=== PATIENT | female | born 1970 | race Hispanic/Latino ===

== ENCOUNTER 2019-11-29 19:21 | Emergency (ER) | payer SELFPAY ==
--- NOTE | 2019-11-29 21:09 | Event Note ---
ED Screening Note Date of service: 11/29/19 Time: 21:07 ED Screening Note: 48 y o female presents with lower back pain s/p fall in the hotel tub tonight. pain with walking recent l4-l5 surgery about a year ago This initial assessment/diagnostic orders/clinical plan/treatment(s) is/are subject to change based on patients health status, clinical progression and re- assessment by fellow clinical providers in the ED. Further treatment and workup at subsequent clinical providers discretion. Patient/guardian urged not to elope from the ED as their condition may be serious if not clinically assessed and managed. Initial orders include: CT lumbar
--- NOTE | 2019-11-30 00:12 | Cat Scan Report ---
CT lumbar spine wo con INDICATION: pain s/p fall. TECHNIQUE: All CT scans at this location are performed using CT dose reduction for ALARA by means of automated e xposure control. COMPARISON: None available. FINDINGS: Advanced degenerative disc change at L4-5. No fracture, subluxation or other acute abnormality. IMPRESSION: 1. No acute fracture. Signer Name: Ousmane Hitchcock MD Signed: 11/30/2019 12:08 AM Workstation Name: [id number]
[2019-11-30] MEDS ORDERED: HYDROmorphone 1 MG/1 ML INJ IM ONE (00:30)
[2019-11-30] MEDS ORDERED: ONDANSETRON 4 MG/2 ML INJ IM ONE (00:30)
--- NOTE | 2019-11-30 00:35 | Emergency Department Report ---
HPI - General Chief Complaint: Fall Time Seen by Provider: 11/30/19 00:14 - HPI HPI: Room 40 The patient is a 48-year-old female presenting with chief complaint of back pain after fall. The patient states this evening she slipped and fell backwards mya ding her back and left side. Patient complains of pain in the lumbar spine radiating to the left lower extremity. Patient denies bowel or bladder incontinence. The patient gets her pain is scored 10/10. Location: [See above] Duration: [See above] Quality: [See above] Severity: [See above] Timing: [See above] Context: [See above] Modifying factors: [See above] Associated signs and symptoms: [see above] ED Past Medical Hx - Past Medical History Previous Medical History?: No - Surgical History Past Surgical History?: Yes Hx Cholecystectomy: Yes Hx Appendectomy: Yes Additional Surgical History: Discectomy L4-L5, Right Ovarian, Tubal ligaton, C- section - Family History Family history: no significant - Social History Smoking Status: Current Every Day Smoker (1/2 pack per day) Substance Use Type: None (denies illicit drug use) - Medications Home Medications: Home Medications Medication Instructions Recorded Confirmed Last Taken Type Cyclobenzaprine [Flexeril] 10 mg PO TID PRN #14 tablet 11/30/19 Unknown Rx HYDROcodone/APAP 5-325 [[place] 1 - 2 each PO Q6HR PRN #14 tablet 11/30/19 Unknown Rx 5/325] ED Review of Systems ROS: Stated complaint: LEFT SIDE BACK PAIN Other details as noted in HPI Constitutional: no symptoms reported Eyes: denies: eye pain ENT: denies: throat pain Respiratory: no symptoms reported Cardiovascular: denies: chest pain Endocrine: no symptoms reported Gastrointestinal: denies: abdominal pain Genitourinary: denies: dysuria Musculoskeletal: back pain Neurological: denies: headache Physical Exam - Physical Exam Vital Signs: Vital Signs 11/29/19 19:29 Temperature 97.8 F Pulse Rate 92 H Respiratory 16 Rate Blood Pressure 115/72 O2 Sat by Pulse 98 Oximetry Physical Exam: GENERAL: The patient is well-developed well-nourished female lying on stretcher appearing to be in mild discomfort HEENT: Normocephalic. Atraumatic. Extraocular motions are intact. Patient has moist mucous membranes. NECK: Supple. Trachea midline CHEST/LUNGS: There is no respiratory distress noted. HEART/CARDIOVASCULAR: Regular. There is no tachycardia. 2+ left DP SKIN: There is no rash. There is no edema. There is no diaphoresis. NEURO: The patient is awake, alert, and oriented. The patient is cooperative. Patient complains of some tingling in the left lower extremity. The patient has normal speech MUSCULOSKELETAL: There is tenderness to palpation of the lumbar spine. ED Course Vital Signs 11/29/19 19:29 Temperature 97.8 F Pulse Rate 92 H Respiratory 16 Rate Blood Pressure 115/72 O2 Sat by Pulse 98 Oximetry ED Medical Decision Making - Radiology Data Radiology results: report reviewed (CT lumbar spine), image reviewed (CT lumbar spine) [facility] [address] [id number] Cat Scan Report Signed Patient: REY MOREIRA MR#: [id number] : 1970 Acct:[id number] Age/Sex: 48 / F ADM Date: 11/29/19 Loc: ED Attending Dr: Ordering Physician: LAM RAMIREZ Date of Service: 11/29/19 Procedure(s): CT lumbar spine wo con Accession Number(s): [id number] cc: LAM RAMIREZ CT lumbar spine wo con INDICATION: pain s/p fall. TECHNIQUE: All CT scans at this location are performed using CT dose reduction for ALARA by means of automated exposure control. COMPARISON: None available. FINDINGS: Advanced degenerative disc change at L4-5. No fracture, subluxation or other acute abnormality. IMPRESSION: 1. No acute fracture. Signer Name: Ousmane Hitchcock MD Signed: 11/30/2019 12:08 AM Workstation Name: [id number] Transcribed By: TM Dictated By: Ousmane Hitchcock MD Electronically Authenticated By: Ousmane Hitchcock MD Signed Date/Time: 11/30/197 DD/ TD/TT: - Differential Diagnosis lumbar fracture, lumbar radiculopathy, lumbar contusion Critical care attestation.: If time is entered above; I have spent that time in minutes in the direct care of this critically ill patient, excluding procedure time. ED Disposition Clinical Impression: Lumbar contusion, Left lumbar radiculopathy Disposition: TO HOME OR SELFCARE Is pt being admited?: No Does the pt Need Aspirin: No Condition: Stable Instructions: Lumbar Radiculopathy (ED) Additional Instructions: Return to the emergency department should you develop worsening symptoms, inability to tolerate food or liquids, high fever or any other concerns Prescriptions: Cyclobenzaprine [Flexeril] 10 mg PO TID PRN #14 tablet PRN Reason: Muscle Spasm HYDROcodone/APAP 5-325 [[place] 5/325] 1 - 2 each PO Q6HR PRN #14 tablet PRN Reason: Pain Referrals: PRIMARY CARE,MD [Primary Care Provider] - 3-5 Days your, orthopedic surgeon [Other] - TU Time of Disposition: 00:36
[2019-11-30 02:10] VITALS: BP 118/78
== END 2019-11-30 02:10 | disposition home or self-care (01) ==
LOC: ED 19:21
DX: S30.0XXA Contusion of lower back and pelvis, initial encounter (principal); M54.16 Radiculopathy, lumbar region; F17.200 Nicotine dependence, unspecified, uncomplicated; Z90.49 Acquired absence of other specified parts of digestive tract; Z90.89 Acquired absence of other organs; Z98.51 Tubal ligation status; Z88.1 Allergy status to other antibiotic agents; Z88.6 Allergy status to analgesic agent; Z88.8 Allergy status to other drugs, medicaments and biological substances; W01.0XXA Fall on same level from slipping, tripping and stumbling without subsequent striking against object, initial encounter; Y93.89 Activity, other specified; Y92.89 Other specified places as the place of occurrence of the external cause; Y99.8 Other external cause status
CPT/HCPCS: 72131; 96372; 99283; J1170; J2405